=== PATIENT | female | born 1990 | race Caucasian/White ===

== ENCOUNTER 2021-12-04 17:22 | Inpatient (IN) ==
[2021-12-04 18:22] LABS: VBG Ionized Calcium 0.85 mmol/L (1.15-1.35)
[2021-12-04 18:34] LABS: Calcium 6.7 mg/dL (8.6-10.3); Potassium 3.3 mEq/L (3.5-5.1)
[2021-12-04] MEDS: Calcium Gluconate 1gm/50mL 1 GM/50 ML BAG IVPB ONE (20:14)
[2021-12-04] MEDS ORDERED: Calcium Gluconate 1gm/50mL 1 GM/50 ML BAG IVPB ONE (20:25)
[2021-12-04] MEDS ORDERED: Potassium Chloride Elixir 20 MEQ/15 ML UDC PO ONE ×2 (21:35→22:31)
[2021-12-04] MEDS ORDERED: calcitrioL 0.25 MCG CAPSULE PO SCH (21:40)
[2021-12-04] MEDS ORDERED: 0.9 % Sodium Chloride 1,000 ML IVC SCH ×2 (21:45→22:31)
[2021-12-04] MEDS ORDERED: Ondansetron 4 MG/2 ML VIAL IVP PRN ×2 (22:03→22:31)
[2021-12-04] MEDS ORDERED: Naloxone 0.4 MG/ML INJ IVP PRN ×4 (22:03→22:31)
[2021-12-04] MEDS ORDERED: *HR* HYDROcodone/Acet 7.5/325 mg TABLET PO PRN (22:16)
[2021-12-04] MEDS ORDERED: RIZATRIPTAN BENZOATE 10 MG PO PRN ×2 (22:16→22:31)
[2021-12-04] MEDS: *HR* HYDROcodone/Acet 7.5/325 mg TABLET PO PRN (22:33)
[2021-12-04] MEDS: tiZANidine 4 MG TABLET PO SCH (22:54)
[2021-12-04] MEDS: hydrOXYzine pamoate 25 MG CAPSULE PO SCH (22:54)
[2021-12-05] MEDS ORDERED: Calcium Gluconate 1gm/50mL 1 GM/50 ML BAG IVPB ONE ×4 (06:00→16:26)
[2021-12-05 07:38] LABS: Hematocrit 32.2 % (35.3-44.9); Hemoglobin 10.5 g/dL (11.5-15.4); Mean Corpuscular HGB Conc 32.6 g/dL (31.6-35.5); Mean Corpuscular Hemoglobin 28.8 pg (28.0-33.3); Mean Corpuscular Volume 88.5 fL (83.0-100.0); Mean Platelet Volume 11.4 fL (9.4-12.4); Platelet Count 248 K/mcL (140-400); Red Blood Count 3.64 M/mcL (3.82-4.97); Red Cell Distribution Width 12.2 % (11.5-14.5); White Blood Count 7.2 K/mcL (4.3-11.1)
[2021-12-05 07:56] LABS: Magnesium 1.7 mg/dL (1.6-2.6); Phosphorous 6.9 mg/dL (2.7-4.5)
[2021-12-05 08:00] LABS: Albumin 3.2 g/dL (3.5-5.7); Albumin/Globulin Ratio 1.2 (1.1-2.2); Bilirubin,Total 0.2 mg/dL (0.3-1.0); Calcium 6.8 mg/dL (8.6-10.3); Globulin 2.6 g/dL (2.4-3.5); Potassium 3.4 mEq/L (3.5-5.1); Total Protein 5.8 g/dL (6.4-8.9)
[2021-12-05] MEDS ORDERED: NON-FORMULARY MEDICATION 1 EACH EACH (Topiramate [Topamax] 50 MG Tablet) PO SCH (09:00)
[2021-12-05] MEDS ORDERED: CALCIUM CARBONATE 2000 MG PO SCH (09:00)
[2021-12-05] MEDS ORDERED: CALCIUM CARBONATE 500 MG PO SCH ×2 (09:00)
[2021-12-05] MEDS ORDERED: LORATADINE 10 MG PO SCH (09:00)
[2021-12-05] MEDS ORDERED: NON-FORMULARY MEDICATION 1 EACH EACH (Omeprazole [Prilosec] 40 MG Capsule.Dr) PO SCH (09:00)
[2021-12-05] MEDS ORDERED: Cyanocobalamin (B-12) 1,000 MCG TABLET PO SCH (09:00)
[2021-12-05] MEDS ORDERED: calcitrioL 0.25 MCG CAPSULE PO SCH (09:00)
[2021-12-05] MEDS ORDERED: CALCIUM CARBONATE 1000 MG PO SCH (09:00)
[2021-12-05] MEDS ORDERED: 0.9 % Sodium Chloride 1,000 ML IVC SCH (09:00)
[2021-12-05] MEDS ORDERED: atenoloL 50 MG TABLET PO SCH ×2 (09:00)
[2021-12-05] MEDS ORDERED: CALCITRIOL 0.5 MCG PO SCH (09:00)
[2021-12-05] MEDS: Topiramate 25 MG TABLET PO SCH (09:06)
[2021-12-05] MEDS: calcitrioL 0.25 MCG CAPSULE PO SCH ×2 (09:06→20:56)
[2021-12-05] MEDS: Cyanocobalamin (B-12) 1,000 MCG TABLET PO SCH (09:06)
[2021-12-05] MEDS: Loratadine 10 MG TABLET PO SCH (09:07)
[2021-12-05] MEDS ORDERED: OYSTER SHELL CALCIUM PO SCH (09:45)
[2021-12-05] MEDS: *HR* HYDROcodone/Acet 7.5/325 mg TABLET PO PRN ×2 (10:04→20:57)
[2021-12-05] MEDS ORDERED: Calcium Gluconate 1gm/50mL 1 GM/50 ML BAG IVPB SCH (12:00)
[2021-12-05] MEDS: Magnesium Oxide 400 MG TABLET PO SCH (12:52)
[2021-12-05 13:19] LABS: VBG Ionized Calcium 0.89 mmol/L (1.15-1.35)
[2021-12-05 13:34] LABS: Calcium 7.1 mg/dL (8.6-10.3)
[2021-12-05 19:21] LABS: VBG Ionized Calcium 1.03 mmol/L (1.15-1.35)
[2021-12-05] MEDS: hydrOXYzine pamoate 25 MG CAPSULE PO SCH (20:56)
[2021-12-05] MEDS: tiZANidine 4 MG TABLET PO SCH (20:57)
[2021-12-05] MEDS ORDERED: TIZANIDINE HCL 4 MG PO SCH (21:00)
[2021-12-05] MEDS ORDERED: NON-FORMULARY MEDICATION 1 EACH EACH (Hydroxyzine Hcl [Hydroxyzine Hcl] 25 MG Tablet) PO SCH (21:00)
[2021-12-06 07:12] LABS: Hematocrit 32.5 % (35.3-44.9); Hemoglobin 10.7 g/dL (11.5-15.4); Mean Corpuscular HGB Conc 32.9 g/dL (31.6-35.5); Mean Corpuscular Hemoglobin 29.6 pg (28.0-33.3); Mean Corpuscular Volume 89.8 fL (83.0-100.0); Mean Platelet Volume 10.6 fL (9.4-12.4); Platelet Count 248 K/mcL (140-400); Red Blood Count 3.62 M/mcL (3.82-4.97); Red Cell Distribution Width 12.3 % (11.5-14.5); White Blood Count 6.8 K/mcL (4.3-11.1)
[2021-12-06 07:22] LABS: VBG Ionized Calcium 0.94 mmol/L (1.15-1.35)
[2021-12-06 07:29] LABS: BUN/Creatinine Ratio 12 (6-26); Blood Urea Nitrogen 10 mg/dL (6-20); Calcium 6.3 mg/dL (8.6-10.3); Carbon Dioxide 24 mEq/L (23-29); Chloride 106 mEq/L (98-107); Glucose 94 mg/dL (70-105); Osmolality,Calculated 285 (280-300); Potassium 3.7 mEq/L (3.5-5.1); Sodium 138 mEq/L (136-145)
[2021-12-06] MEDS ORDERED: Calcium Acetate 667 MG CAPSULE PO SCH (09:00)
[2021-12-06] MEDS: Cyanocobalamin (B-12) 1,000 MCG TABLET PO SCH (09:20)
[2021-12-06] MEDS: Topiramate 25 MG TABLET PO SCH (10:19)
[2021-12-06] MEDS: calcitrioL 0.25 MCG CAPSULE PO SCH ×2 (10:20→20:54)
[2021-12-06] MEDS: Loratadine 10 MG TABLET PO SCH (10:20)
[2021-12-06] MEDS: Calcium Acetate 667 MG CAPSULE PO SCH ×3 (10:20→16:11)
[2021-12-06] MEDS: Magnesium Oxide 400 MG TABLET PO SCH (10:21)
[2021-12-06] MEDS: Calcium Gluconate 1gm/50mL 1 GM/50 ML BAG IVPB SCH (10:21)
[2021-12-06] MEDS: atenoloL 50 MG TABLET PO SCH (10:36)
[2021-12-06] MEDS: Calcium Gluconate 1gm/50mL 1 GM/50 ML BAG IVPB ONE (12:52)
[2021-12-06] MEDS: SODIUM CHLORIDE 0.9% IVPB SCH (13:51)
[2021-12-06] MEDS: CALCIUM GLUCONATE IVPB SCH (13:51)
[2021-12-06] MEDS: *HR* HYDROcodone/Acet 7.5/325 mg TABLET PO PRN (16:10)
[2021-12-06] MEDS ORDERED: Acetaminophen 325 MG TABLET PO PRN (19:20)
[2021-12-06] MEDS: hydrOXYzine pamoate 25 MG CAPSULE PO SCH (20:53)
[2021-12-06] MEDS: tiZANidine 4 MG TABLET PO SCH (20:54)
[2021-12-07] MEDS: Calcium Acetate 667 MG CAPSULE PO SCH ×5 (01:46→20:32)
[2021-12-07 06:54] LABS: Hematocrit 31.6 % (35.3-44.9); Hemoglobin 10.3 g/dL (11.5-15.4); Mean Corpuscular HGB Conc 32.6 g/dL (31.6-35.5); Mean Corpuscular Hemoglobin 29.3 pg (28.0-33.3); Mean Corpuscular Volume 89.8 fL (83.0-100.0); Mean Platelet Volume 11.3 fL (9.4-12.4); Platelet Count 242 K/mcL (140-400); Red Blood Count 3.52 M/mcL (3.82-4.97); Red Cell Distribution Width 12.6 % (11.5-14.5); White Blood Count 6.5 K/mcL (4.3-11.1)
[2021-12-07 07:18] LABS: BUN/Creatinine Ratio 14 (6-26); Blood Urea Nitrogen 11 mg/dL (6-20); Calcium 7.6 mg/dL (8.6-10.3); Carbon Dioxide 23 mEq/L (23-29); Chloride 108 mEq/L (98-107); Glucose 90 mg/dL (70-105); Magnesium 1.8 mg/dL (1.6-2.6); Osmolality,Calculated 285 (280-300); Potassium 4.2 mEq/L (3.5-5.1); Sodium 138 mEq/L (136-145)
[2021-12-07] MEDS: calcitrioL 0.25 MCG CAPSULE PO SCH ×2 (09:18→20:31)
[2021-12-07] MEDS: atenoloL 50 MG TABLET PO SCH (09:19)
[2021-12-07] MEDS: Loratadine 10 MG TABLET PO SCH (09:19)
[2021-12-07] MEDS: Topiramate 25 MG TABLET PO SCH (09:19)
[2021-12-07] MEDS: Magnesium Oxide 400 MG TABLET PO SCH (09:19)
[2021-12-07] MEDS: Cyanocobalamin (B-12) 1,000 MCG TABLET PO SCH (09:19)
[2021-12-07] MEDS: SODIUM CHLORIDE 0.9% IVPB SCH (10:31)
[2021-12-07] MEDS: CALCIUM GLUCONATE IVPB SCH (10:31)
[2021-12-07] MEDS: Calcium Gluconate 1gm/50mL 1 GM/50 ML BAG IVPB SCH (11:32)
[2021-12-07] MEDS: *HR* HYDROcodone/Acet 7.5/325 mg TABLET PO PRN (20:31)
[2021-12-07] MEDS: hydrOXYzine pamoate 25 MG CAPSULE PO SCH (20:31)
[2021-12-07] MEDS: tiZANidine 4 MG TABLET PO SCH (20:31)
[2021-12-08 02:28] LABS: Hematocrit 31.8 % (35.3-44.9); Hemoglobin 10.5 g/dL (11.5-15.4); Mean Corpuscular Hemoglobin 28.9 pg (28.0-33.3); Mean Corpuscular Volume 87.6 fL (83.0-100.0); Mean Platelet Volume 10.7 fL (9.4-12.4); Platelet Count 257 K/mcL (140-400); Red Blood Count 3.63 M/mcL (3.82-4.97); Red Cell Distribution Width 12.1 % (11.5-14.5)
[2021-12-08] MEDS: SODIUM CHLORIDE 0.9% IVPB SCH ×2 (03:29→22:13)
[2021-12-08] MEDS: CALCIUM GLUCONATE IVPB SCH ×2 (03:29→22:13)
[2021-12-08] MEDS: *HR* Enoxaparin 40 MG/0.4 ML SYRINGE SQ SCH (06:20)
[2021-12-08 08:21] LABS: Calcium 8.7 mg/dL (8.6-10.3); Magnesium 1.9 mg/dL (1.6-2.6); Potassium 4.1 mEq/L (3.5-5.1)
[2021-12-08] MEDS: atenoloL 50 MG TABLET PO SCH (10:37)
[2021-12-08] MEDS: Loratadine 10 MG TABLET PO SCH (10:38)
[2021-12-08] MEDS: Cyanocobalamin (B-12) 1,000 MCG TABLET PO SCH (10:38)
[2021-12-08] MEDS: Topiramate 25 MG TABLET PO SCH (10:39)
[2021-12-08] MEDS: Calcium Acetate 667 MG CAPSULE PO SCH ×4 (10:39→20:41)
[2021-12-08] MEDS: calcitrioL 0.25 MCG CAPSULE PO SCH ×2 (10:39→20:41)
[2021-12-08] MEDS: Magnesium Oxide 400 MG TABLET PO SCH (10:39)
[2021-12-08] MEDS: *HR* HYDROcodone/Acet 7.5/325 mg TABLET PO PRN (20:41)
[2021-12-08] MEDS: tiZANidine 4 MG TABLET PO SCH (20:41)
[2021-12-08] MEDS: hydrOXYzine pamoate 25 MG CAPSULE PO SCH (20:41)
[2021-12-09 05:09] LABS: Hematocrit 32.5 % (35.3-44.9); Hemoglobin 10.8 g/dL (11.5-15.4); Mean Corpuscular HGB Conc 33.2 g/dL (31.6-35.5); Mean Corpuscular Hemoglobin 29.1 pg (28.0-33.3); Mean Corpuscular Volume 87.6 fL (83.0-100.0); Mean Platelet Volume 11.5 fL (9.4-12.4); Platelet Count 279 K/mcL (140-400); Red Blood Count 3.71 M/mcL (3.82-4.97); Red Cell Distribution Width 12.1 % (11.5-14.5); White Blood Count 7.3 K/mcL (4.3-11.1)
[2021-12-09 05:20] LABS: BUN/Creatinine Ratio 15 (6-26); Blood Urea Nitrogen 12 mg/dL (6-20); Calcium 8.5 mg/dL (8.6-10.3); Carbon Dioxide 24 mEq/L (23-29); Chloride 103 mEq/L (98-107); Glucose 106 mg/dL (70-105); Magnesium 1.7 mg/dL (1.6-2.6); Osmolality,Calculated 282 (280-300); Potassium 3.8 mEq/L (3.5-5.1); Sodium 136 mEq/L (136-145)
[2021-12-09] MEDS: *HR* Enoxaparin 40 MG/0.4 ML SYRINGE SQ SCH (06:05)
[2021-12-09 07:28] VITALS: BP 120/72; PULSE 80; RESP 18; TEMP 98.3; O2SAT 97
[2021-12-09] MEDS: Topiramate 25 MG TABLET PO SCH (09:02)
[2021-12-09] MEDS: Cyanocobalamin (B-12) 1,000 MCG TABLET PO SCH (09:03)
[2021-12-09] MEDS: Magnesium Oxide 400 MG TABLET PO SCH (09:03)
[2021-12-09] MEDS: Calcium Acetate 667 MG CAPSULE PO SCH (09:03)
[2021-12-09] MEDS: Loratadine 10 MG TABLET PO SCH (09:03)
[2021-12-09] MEDS: calcitrioL 0.25 MCG CAPSULE PO SCH (09:03)
[2021-12-09] MEDS: atenoloL 50 MG TABLET PO SCH (09:04)
[2021-12-10] MEDS ORDERED: [UNRECOGNIZED DRUG - OTHER] PO SCH (22:16)
[2021-12-10] MEDS ORDERED: CHOLECALCIFEROL 1250 MCG PO SCH (22:16)
== END 2021-12-09 13:34 | disposition home or self-care (01) | DRG 425 ==
LOC: EMEROOPIK 17:22 → INPPIK 17:22
PROVIDERS: ADMIT Internal Medicine; ATTEND Internal Medicine